=== PATIENT | female | born 1950 | race Hispanic/Latino ===

== ENCOUNTER 2017-09-19 13:06 | Outpatient (CLI) | payer SELFPAY ==
--- NOTE | 2017-09-25 10:18 | MMO ---
BILATERAL SCREENING MAMMOGRAMS: Date: 09/19/17 Comparison made to prior exams from 2014 and 2015. This patient's mammogram was interpreted with the assistance of computer-aided detection. FINDINGS: Scattered fibroglandular densities. No evidence of mass, distortion, or suspicious calcification. No interval change identified. Recommend one year follow-up. IMPRESSION: BIRADS 1: Negative POS: [facility]
== END 2017-09-19 13:07 | disposition home or self-care (01) ==
LOC: SCSMAMMO 13:06
PROVIDERS: ATTEND Family Medicine
DX: Z12.31 Encounter for screening mammogram for malignant neoplasm of breast (principal)
CPT/HCPCS: 77067

== ENCOUNTER 2018-10-15 16:51 | Emergency (ER) | payer SELFPAY ==
--- NOTE | 2018-10-15 19:08 | RAD ---
Frontal radiograph chest: 10/15/2018 COMPARISON: None HISTORY: Cough, shortness of breath FINDINGS: Mild increased linear interstitial density noted. No pneumothorax, pleural fluid, focal con solidation, or alveolar edema. IMPRESSION: No acute findings.
[2018-10-15 19:14] LABS: #Basophils 0.1 thou/uL (0.0-0.2); #Eosinphils 1.3 thou/uL (0.0-0.7); #Lymphocytes 2.4 thou/uL (1.20-3.40); #Monocytes 0.7 thou/uL (0.11-0.59); %Basophils 1.2 % (0.0-1.0); %Eosinophils 17.3 % (0.0-10.0); %Lymphocytes 32.1 % (21.0-51.0); %Neutrophils 40.5 % (42.0-75.0); Hemoglobin 13.2 g/dL (12.0-16.0); Mean Corpuscular Hemoglobin 28.4 pg (27.0-31.0); Mean Corpuscular Volume 88.8 fL (78.0-98.0); Platelet Count 217 thou/uL (130-400); RBC Distribution Width 13.7 % (11.5-14.5); Red Blood Cell (RBC) Count 4.66 mill/uL (4.20-5.40); White Blood Cell (WBC) Count 7.4 thou/uL (4.8-10.8)
[2018-10-15 19:36] LABS: ALT (SGPT) 20 U/L (8-55); AST (SGOT) 20 U/L (5-34); Albumin 4.2 g/dL (3.4-4.8); Alkaline Phosphatase 102 U/L (40-150); Anion Gap 12 mmol/L (10-20); BUN (Urea Nitrogen) 11 mg/dL (9.8-20.1); Bilirubin, Total 0.3 mg/dL (0.2-1.2); Calc. Creatinine Clearance 0 mL/min (70-130); Calcium 9.9 mg/dL (7.8-10.44); Carbon Dioxide 29 mmol/L (23-31); Chloride 104 mmol/L (98-107); Estimated GFR-MDRD 85; Globulin 3.7 g/dL (2.4-3.5); Glucose 107 mg/dL (80-115); Potassium 3.7 mmol/L (3.5-5.1); Protein, Total 7.9 g/dL (6.0-8.3); Sodium 141 mmol/L (136-145)
[2018-10-15] MEDS ORDERED: Albuterol Sulfate 2.5 mg/3 ml Neb ONE (21:15)
[2018-10-15] MEDS ORDERED: Dexamethasone 10 MG/ML VIAL ONE (21:35)
[2018-10-15] MEDS ORDERED: cefTRIAXone\\ROCEPHIN 1 GM VIAL ONE (21:40)
[2018-10-15] MEDS ORDERED: Magnesium 2 GM/50 ML 2 GM in Premix Bag 1 BAG IVPB SCH (21:45)
== END 2018-10-15 22:58 | disposition home or self-care (01) ==
LOC: ERS 16:51
DX: J20.9 Acute bronchitis, unspecified (principal); E11.9 Type 2 diabetes mellitus without complications; E66.9 Obesity, unspecified
CPT/HCPCS: 36415; 71045; 80053; 84145; 85025; 94640; 96365; 96367; 96375; J0696; J1100; J3475; J7611; J7620